=== PATIENT | male | born 1975 | race Caucasian/White ===

== ENCOUNTER 2018-03-09 23:03 | Inpatient (IN) | payer OTHER ==
[2018-03-09] MEDS ORDERED: SODIUM CHLORIDE 0.9% 500 ML 500 ML IV STA (23:13)
[2018-03-09] MEDS ORDERED: FAMOTIDINE 20 MG/2 ML VIAL IV STA (23:54)
--- NOTE | 2018-03-09 23:59 | ED ---
GI Bleed HPI - General Chief complaint: GI Bleed Stated complaint: Vomitting Blood Time Seen by Provider: 03/09/18 23:11 Source: patient Mode of arrival: ambulatory Limitations: no limitations - History of Present Illness Initial comments: This patient is a 43-year-old man who presents to be evaluated for an episode of hematemesis. The patient states that he had been watching television tonight. His stomach felt upset and then he vomited and noted that there was bright blood there. The patient states that prior to this all night he had been feeling like his usual self. He had not been having abdominal pains. No change in bowel movements, last which was this morning and he states was normal. He is denying symptoms of anemia, including no dyspnea, chest pain or palpitations, lightheadedness or syncope. Patient does smoke, and he does drink alcohol, including having some yesterday. He does take occasional NSAIDs for back pain. MD complaint: gross hematemesis Onset/Timin -: hour(s) Quality: painless Consistency: constant Improves with: none Worsens with: none Associated Symptoms: denies other symptoms Treatments Prior to Arrival: none - Related Data Home Medications Medication Instructions Recorded Confirmed Atenolol [Tenormin] 50 mg PO DAILY 03/09/18 03/09/18 Losartan [Cozaar] 50 mg PO DAILY 03/09/18 03/09/18 Allergies Allergy/AdvReac Type Severity Reaction Status Date / Time Penicillins Allergy Unknown Verified 03/09/18 23:26 Childhood Review of Systems ROS Statement: Those systems with pertinent positive or pertinent negative responses have been documented in the HPI. ROS Other: All systems not noted in ROS Statement are negative. Constitutional: Denies: fever, chills Respiratory: Denies: cough, dyspnea Cardiovascular: Denies: chest pain, palpitations, edema, syncope Gastrointestinal: Reports: nausea, vomiting, hematemesis. Denies: abdominal pain, diarrhea, constipation, melena, hematochezia Musculoskeletal: Denies: back pain Skin: Denies: rash Neurological: Denies: headache, weakness, numbness Hematological/Lymphatic: Denies: easy bleeding Past Medical History Past Medical History: Hypertension History of Any Multi-Drug Resistant Organisms: None Reported Past Surgical History: Orthopedic Surgery Past Psychological History: No Psychological Hx Reported Smoking Status: Current every day smoker Past Alcohol Use History: Daily Past Drug Use History: None Reported General Exam Limitations: no limitations General appearance: alert, in no apparent distress Head exam: Present: atraumatic, normocephalic Eye exam: Present: normal appearance. Absent: scleral icterus, conjunctival injection ENT exam: Present: other (Poor dentition, caries) Respiratory exam: Present: normal lung sounds bilaterally. Absent: respiratory distress, wheezes, rales, rhonchi, stridor Cardiovascular Exam: Present: normal rhythm, tachycardia (Rate 108 at my exam), normal heart sounds. Absent: systolic murmur, diastolic murmur, rubs, gallop GI/Abdominal exam: Present: soft, normal bowel sounds. Absent: distended, tenderness, guarding, rebound, rigid, mass, pulsatile mass, hernia Extremities exam: Present: normal inspection, normal capillary refill. Absent: pedal edema, calf tenderness Back exam: Present: normal inspection. Absent: CVA tenderness (R), CVA tenderness (L) Neurological exam: Present: alert Skin exam: Present: warm, dry, intact, normal color. Absent: rash Course Vital Signs 03/09/18 03/10/18 03/10/18 23:05 01:57 02:48 Temperature 98.6 F Pulse Rate 111 H 114 H 115 H Respiratory 20 17 17 Rate Blood Pressure 136/79 119/58 138/59 O2 Sat by Pulse 100 97 98 Oximetry 03/10/18 03/10/18 03:45 05:41 Temperature Pulse Rate 112 H 118 H Respiratory 17 17 Rate Blood Pressure 137/65 128/64 O2 Sat by Pulse 98 96 Oximetry Medical Decision Making - Medical Decision Making The patient did have an additional episode of vomiting here with on probably around 100 200 mL of dark blood. Case discussed with admitting physician and also with Dr. Lin. Patient be admitted with gastroenterology constipation. No further hematemesis. - Lab Data Result diagrams: 03/10/18 03:58 03/09/18 23:56 Lab Results 03/09/18 03/09/18 03/09/18 Range/Units 23:56 23:56 23:56 WBC 10.4 (3.8-10.6) k/uL RBC 3.30 L (4.30-5.90) m/uL Hgb 11.2 L (13.0-17.5) gm/dL Hct 34.7 L (39.0-53.0) % MCV 105.3 H (80.0-100.0) fL MCH 33.9 (25.0-35.0) pg MCHC 32.2 (31.0-37.0) g/dL RDW 14.6 (11.5-15.5) % Plt Count 92 L (150-450) k/uL Neutrophils % 80 % Lymphocytes % 13 % Monocytes % 5 % Eosinophils % 1 % Basophils % 0 % Neutrophils # 8.3 H (1.3-7.7) k/uL Lymphocytes # 1.3 (1.0-4.8) k/uL Monocytes # 0.5 (0-1.0) k/uL Eosinophils # 0.1 (0-0.7) k/uL Basophils # 0.0 (0-0.2) k/uL Macrocytosis Moderate APTT (22.0-30.0) sec Sodium 138 (137-145) mmol/L Potassium 5.4 H (3.5-5.1) mmol/L Chloride 111 H (98-107) mmol/L Carbon Dioxide 20 L (22-30) mmol/L Anion Gap 7 mmol/L BUN 15 (9-20) mg/dL Creatinine 0.61 L (0.66-1.25) mg/dL Est GFR (CKD-EPI)AfAm >90 (>60 ml/min/1.73 sqM) Est GFR (CKD-EPI)NonAf >90 (>60 ml/min/1.73 sqM) Glucose 154 H (74-99) mg/dL Lactic Ac Sepsis Rflx Plasma Lactic Acid Austin (0.7-2.0) mmol/L Calcium 8.6 (8.4-10.2) mg/dL Total Bilirubin 2.8 H (0.2-1.3) mg/dL AST 72 H (17-59) U/L ALT 37 (21-72) U/L Alkaline Phosphatase 90 (38-126) U/L Total Creatine Kinase 106 (55-170) U/L CK-MB (CK-2) 1.3 (0.0-2.4) ng/mL CK-MB (CK-2) Rel Index 1.2 Troponin I 0.014 (0.000-0.034) ng/mL Total Protein 6.3 (6.3-8.2) g/dL Albumin 3.0 L (3.5-5.0) g/dL Serum Alcohol mg/dL 03/09/18 03/09/18 03/10/18 Range/Units 23:56 23:56 00:55 WBC (3.8-10.6) k/uL RBC (4.30-5.90) m/uL Hgb (13.0-17.5) gm/dL Hct (39.0-53.0) % MCV (80.0-100.0) fL MCH (25.0-35.0) pg MCHC (31.0-37.0) g/dL RDW (11.5-15.5) % Plt Count (150-450) k/uL Neutrophils % % Lymphocytes % % Monocytes % % Eosinophils % % Basophils % % Neutrophils # (1.3-7.7) k/uL Lymphocytes # (1.0-4.8) k/uL Monocytes # (0-1.0) k/uL Eosinophils # (0-0.7) k/uL Basophils # (0-0.2) k/uL Macrocytosis APTT 23.1 (22.0-30.0) sec Sodium (137-145) mmol/L Potassium (3.5-5.1) mmol/L Chloride (98-107) mmol/L Carbon Dioxide (22-30) mmol/L Anion Gap mmol/L BUN (9-20) mg/dL Creatinine (0.66-1.25) mg/dL Est GFR (CKD-EPI)AfAm (>60 ml/min/1.73 sqM) Est GFR (CKD-EPI)NonAf (>60 ml/min/1.73 sqM) Glucose (74-99) mg/dL Lactic Ac Sepsis Rflx Y Plasma Lactic Acid Austin 4.3 H* (0.7-2.0) mmol/L Calcium (8.4-10.2) mg/dL Total Bilirubin (0.2-1.3) mg/dL AST (17-59) U/L ALT (21-72) U/L Alkaline Phosphatase (38-126) U/L Total Creatine Kinase (55-170) U/L CK-MB (CK-2) (0.0-2.4) ng/mL CK-MB (CK-2) Rel Index Troponin I (0.000-0.034) ng/mL Total Protein (6.3-8.2) g/dL Albumin (3.5-5.0) g/dL Serum Alcohol mg/dL 03/10/18 Range/Units 01:44 WBC (3.8-10.6) k/uL RBC (4.30-5.90) m/uL Hgb (13.0-17.5) gm/dL Hct (39.0-53.0) % MCV (80.0-100.0) fL MCH (25.0-35.0) pg MCHC (31.0-37.0) g/dL RDW (11.5-15.5) % Plt Count (150-450) k/uL Neutrophils % % Lymphocytes % % Monocytes % % Eosinophils % % Basophils % % Neutrophils # (1.3-7.7) k/uL Lymphocytes # (1.0-4.8) k/uL Monocytes # (0-1.0) k/uL Eosinophils # (0-0.7) k/uL Basophils # (0-0.2) k/uL Macrocytosis APTT (22.0-30.0) sec Sodium (137-145) mmol/L Potassium (3.5-5.1) mmol/L Chloride (98-107) mmol/L Carbon Dioxide (22-30) mmol/L Anion Gap mmol/L BUN (9-20) mg/dL Creatinine (0.66-1.25) mg/dL Est GFR (CKD-EPI)AfAm (>60 ml/min/1.73 sqM) Est GFR (CKD-EPI)NonAf (>60 ml/min/1.73 sqM) Glucose (74-99) mg/dL Lactic Ac Sepsis Rflx Plasma Lactic Acid Austin (0.7-2.0) mmol/L Calcium (8.4-10.2) mg/dL Total Bilirubin (0.2-1.3) mg/dL AST (17-59) U/L ALT (21-72) U/L Alkaline Phosphatase (38-126) U/L Total Creatine Kinase (55-170) U/L CK-MB (CK-2) (0.0-2.4) ng/mL CK-MB (CK-2) Rel Index Troponin I (0.000-0.034) ng/mL Total Protein (6.3-8.2) g/dL Albumin (3.5-5.0) g/dL Serum Alcohol 21 mg/dL Disposition Clinical Impression: Upper gastrointestinal hemorrhage Disposition: ADMITTED IP TO THIS HOSP Condition: Fair Is patient prescribed a controlled substance at d/c from ED?: No
[2018-03-10 00:40] LABS: Basophils % (A) 0 %; Eosinophils # (A) 0.1 k/uL (0-0.7); Eosinophils % (A) 1 %; HCT 34.7 % (39.0-53.0); HGB 11.2 gm/dL (13.0-17.5); Lymphocytes # (A) 1.3 k/uL (1.0-4.8); Lymphocytes % (A) 13 %; MCH 33.9 pg (25.0-35.0); MCHC 32.2 g/dL (31.0-37.0); MCV 105.3 fL (80.0-100.0); Macrocytosis Moderate; Mean Platelet Volume 7.2; Monocytes # (A) 0.5 k/uL (0-1.0); Monocytes % (A) 5 %; Neutrophils # (A) 8.3 k/uL (1.3-7.7); Neutrophils % (A) 80 %; RDW 14.6 % (11.5-15.5); WBC 10.4 k/uL (3.8-10.6)
[2018-03-10 00:55] LABS: ALT 37 U/L (21-72); AST 72 U/L (17-59); Alkaline Phosphatase 90 U/L (38-126); Anion Gap 7 mmol/L; Blood Urea Nitrogen 15 mg/dL (9-20); Calcium 8.6 mg/dL (8.4-10.2); Carbon Dioxide 20 mmol/L (22-30); Chloride 111 mmol/L (98-107); Glucose 154 mg/dL (74-99); Potassium 5.4 mmol/L (3.5-5.1); Sodium 138 mmol/L (137-145); Total Bilirubin 2.8 mg/dL (0.2-1.3); Total Protein 6.3 g/dL (6.3-8.2)
[2018-03-10] MEDS ORDERED: SODIUM CHLORIDE 0.9% 500 ML 500 ML IV STA (01:18)
[2018-03-10] MEDS ORDERED: PANTOPRAZOLE 40 MG/10 ML VIAL IVP STA (01:19)
[2018-03-10 01:21] LABS: Creatine Kinase MB 1.3 ng/mL (0.0-2.4); Troponin I 0.014 ng/mL (0.000-0.034)
[2018-03-10 01:32] LABS: Platelet Count 92 k/uL (150-450)
[2018-03-10] MEDS ORDERED: NALOXONE 0.4 MG/ML 1 ML VIAL IV PRN (03:05)
[2018-03-10] MEDS ORDERED: ONDANSETRON 4 MG/2 ML VIAL IVP PRN (03:05)
[2018-03-10] MEDS ORDERED: THIAMINE 100 MG/ML 2 ML VIAL IM STA (03:15)
[2018-03-10] MEDS ORDERED: LORazepam 2 MG/ML INJ IV PRN ×3 (03:15)
[2018-03-10 04:58] LABS: HCT 31.3 % (39.0-53.0); HGB 10.2 gm/dL (13.0-17.5); MCHC 32.6 g/dL (31.0-37.0); MCV 104.2 fL (80.0-100.0); Macrocytosis Slight; Mean Platelet Volume 7.6; RDW 14.6 % (11.5-15.5); WBC 12.1 k/uL (3.8-10.6)
[2018-03-10 05:22] LABS: Platelet Count 89 k/uL (150-450)
--- NOTE | 2018-03-10 06:31 | P.HPIM ---
History of Present Illness H&P Date: 03/10/18 Chief Complaint: Hematemesis Patient is a 43-year-old male with history of hypertension, alcohol abuse he states he drinks about a sixpack of beer although liquor daily, tobacco abuse, chronic back pain for which she was taking NSAIDs on a regular basis and has not taken any recently. Patient states he was feeling well until the day of admission during the day he felt that his stomach was queasy however he did not have any nausea vomiting or diarrhea. If that evening, the patient states he put his kids to bed he then sat down to watch football and then felt nauseous and had an episode of hematemesis. States since mannerly bright blood. Denied any dizziness or shortness of breath he came to the emergency room for evaluation. In the emergency room patient's tachycardic versus vital signs are otherwise stable he had other episodes of hematemesis in the emergency room he received Protonix IV 1 was admitted for further workup and management. Review of Systems Complete Reviewed and negative other than stated above Past Medical History Past Medical History: Hypertension History of Any Multi-Drug Resistant Organisms: None Reported Past Surgical History: Orthopedic Surgery Past Psychological History: No Psychological Hx Reported Smoking Status: Current every day smoker Past Alcohol Use History: Daily Past Drug Use History: None Reported Medications and Allergies Home Medications Medication Instructions Recorded Confirmed Type Atenolol [Tenormin] 50 mg PO DAILY 03/09/18 03/09/18 History Losartan [Cozaar] 50 mg PO DAILY 03/09/18 03/09/18 History Allergies Allergy/AdvReac Type Severity Reaction Status Date / Time Penicillins Allergy Unknown Verified 03/09/18 23:26 Childhood Physical Exam Vitals: Vital Signs Temp Pulse Resp BP Pulse Ox 03/10/18 05:41 118 H 17 128/64 96 03/10/18 03:45 112 H 17 137/65 98 03/10/18 02:48 115 H 17 138/59 98 03/10/18 01:57 114 H 17 119/58 97 03/09/18 23:05 98.6 F 111 H 20 136/79 100 Intake and Output 03/09/18 03/09/18 03/10/18 14:59 22:59 06:59 Other: Weight 105.687 kg - Constitutional General appearance: no acute distress - EENT Eyes: PERRLA ENT: normal oropharynx - Neck Neck: normal ROM - Respiratory Respiratory: bilateral: CTA - Cardiovascular Tachycardic no murmurs rubs or gallops - Gastrointestinal General gastrointestinal: normal bowel sounds, soft - Integumentary Integumentary: normal turgor - Musculoskeletal Musculoskeletal: strength equal bilaterally - Psychiatric Psychiatric: A&O x's 3, appropriate affect, intact judgment & insight Results CBC & Chem 7: 03/10/18 03:58 03/09/18 23:56 Labs: Abnormal Lab Results - Last 24 Hours (Table) 03/09/18 03/09/18 03/09/18 Range/Units 23:56 23:56 23:56 WBC (3.8-10.6) k/uL RBC 3.30 L (4.30-5.90) m/uL Hgb 11.2 L (13.0-17.5) gm/dL Hct 34.7 L (39.0-53.0) % MCV 105.3 H (80.0-100.0) fL Plt Count 92 L (150-450) k/uL Neutrophils # 8.3 H (1.3-7.7) k/uL Potassium 5.4 H (3.5-5.1) mmol/L Chloride 111 H (98-107) mmol/L Carbon Dioxide 20 L (22-30) mmol/L Creatinine 0.61 L (0.66-1.25) mg/dL Glucose 154 H (74-99) mg/dL Plasma Lactic Acid Austin 4.3 H* (0.7-2.0) mmol/L Total Bilirubin 2.8 H (0.2-1.3) mg/dL AST 72 H (17-59) U/L Albumin 3.0 L (3.5-5.0) g/dL 03/10/18 03/10/18 Range/Units 03:58 04:49 WBC 12.1 H (3.8-10.6) k/uL RBC 3.00 L (4.30-5.90) m/uL Hgb 10.2 L (13.0-17.5) gm/dL Hct 31.3 L (39.0-53.0) % MCV 104.2 H (80.0-100.0) fL Plt Count 89 L (150-450) k/uL Neutrophils # (1.3-7.7) k/uL Potassium (3.5-5.1) mmol/L Chloride (98-107) mmol/L Carbon Dioxide (22-30) mmol/L Creatinine (0.66-1.25) mg/dL Glucose (74-99) mg/dL Plasma Lactic Acid Austin 3.8 H* (0.7-2.0) mmol/L Total Bilirubin (0.2-1.3) mg/dL AST (17-59) U/L Albumin (3.5-5.0) g/dL Thrombosis Risk Factor Assmnt - DVT/VTE Prophylaxis DVT/VTE Prophylaxis: Contraindicated - See note - Choose All That Apply Each Factor Represents 1 point: Age 41-60 years Thrombosis Risk Factor Assessment Total Risk Factor Score: 1 Thrombosis Risk Factor Assessment Level: Low Risk Assessment and Plan Assessment: Consult gastroenterology, trend hemoglobins, at this time does not require any transfusions, PPI twice a day IV, keep patient nothing by mouth and given IV hydration (1) Upper gastrointestinal hemorrhage Current Visit: Yes Status: Acute Code(s): K92.2 - GASTROINTESTINAL HEMORRHAGE, UNSPECIFIED SNOMED Code(s): 81603902 (2) Tobacco abuse Narrative/Plan: His carcinoma smoking cessation he refuses a nicotine patch at this time Current Visit: Yes Status: Acute Code(s): Z72.0 - TOBACCO USE SNOMED Code( s): 050050037 (3) Alcohol abuse Narrative/Plan: CIWA protocol in place, monitor for evidence of withdrawal, IV hydration, Current Visit: Yes Status: Acute Code(s): F10.10 - ALCOHOL ABUSE, UNCOMPLICATED SNOMED Code(s): 88707372 (4) Hypertension Narrative/Plan: Continue outpatient regiment and titrate as needed Current Visit: Yes Status: Acute Code(s): I10 - ESSENTIAL (PRIMARY) HYPERTENSION SNOMED Code(s): 37355187 (5) Hyperglycemia Narrative/Plan: Recheck fasting sugars, check A1c, patient is diabetic then we will initiate counseling and education with treatment Current Visit: Yes Status: Acute Code(s): R73.9 - HYPERGLYCEMIA, UNSPECIFIED SNOMED Code(s): 06865517 Plan: Low risk for DVT votes chemical prophylaxis contraindicated, anticipated that he will need grated midnights stay, he is a full code
[2018-03-10 07:52] LABS: Anion Gap 8 mmol/L; Blood Urea Nitrogen 17 mg/dL (9-20); Calcium 8.4 mg/dL (8.4-10.2); Carbon Dioxide 17 mmol/L (22-30); Chloride 115 mmol/L (98-107); Glucose 140 mg/dL (74-99); Potassium 5.2 mmol/L (3.5-5.1); Sodium 140 mmol/L (137-145)
[2018-03-10] MEDS: SODIUM CHLORIDE 0.9% 1,000 ML IV SCH ×3 (07:53→15:42)
[2018-03-10] MEDS: LOSARTAN 50 MG TAB PO SCH (08:03)
[2018-03-10] MEDS: PANTOPRAZOLE 40 MG/10 ML VIAL IV SCH (08:03)
[2018-03-10] MEDS: ATENOLOL 50 MG TAB PO SCH (08:03)
[2018-03-10 08:26] LABS: Basophils % (A) 0 %; Eosinophils % (A) 0 %; HCT 27.3 % (39.0-53.0); HGB 9.1 gm/dL (13.0-17.5); Lymphocytes % (A) 9 %; MCH 35.2 pg (25.0-35.0); MCHC 33.4 g/dL (31.0-37.0); MCV 105.4 fL (80.0-100.0); Macrocytosis Moderate; Mean Platelet Volume 7.4; Monocytes # (A) 0.8 k/uL (0-1.0); Monocytes % (A) 7 %; Neutrophils # (A) 9.5 k/uL (1.3-7.7); Neutrophils % (A) 83 %; RBC 2.59 m/uL (4.30-5.90); RDW 14.8 % (11.5-15.5); WBC 11.5 k/uL (3.8-10.6)
[2018-03-10 08:36] LABS: Anion Gap 7 mmol/L; Blood Urea Nitrogen 22 mg/dL (9-20); Calcium 7.9 mg/dL (8.4-10.2); Carbon Dioxide 20 mmol/L (22-30); Chloride 114 mmol/L (98-107); Glucose 126 mg/dL (74-99); Platelet Count 90 k/uL (150-450); Potassium 5.6 mmol/L (3.5-5.1); Sodium 141 mmol/L (137-145)
[2018-03-10] MEDS ORDERED: DEXTROSE 50%-WATER 50 ML SYRINGE IVP STA (12:00)
[2018-03-10] MEDS ORDERED: INSULIN REGULAR 100 UNIT/ML VIAL IV ONE (12:00)
--- NOTE | 2018-03-10 12:25 | P.PN ---
Progress Note - Text Progress Note Date: 03/10/18 43 year old M with PMH of EtOH abuse presents to the ED for hematemesis and melena. Patient reports multiple bloody episodes of vomiting prior to admission. Since last night, he has vomited once, with gross blood. He denies any abdominal pain. No changes in bowel habits. States he took 2 Ibuprofens over the past 2 days. He does drink 1-2 shots daily with 5-6 beers. Alert and oriented x 3 RRR. Normal S1 S2. No murmurs, rubs or gallops. Clear to auscultation bilaterally Soft, non tender abdomen. No masses No lower extremity edema 2+ DP pulses bilaterally 1. Upper GI bleed: Likely gastritis vs ulcer disease. Long history of EtOH with remote h/o NSAID use. Protonix 40 mg IV QD. Zofran 4 mg IV TID PRN for N/V. H&H Q8H. Telemetry monitoring. NPO for possible intervention. FU GI consult 2. Alcohol abuse: CIWA protocol. Ativan IV PRN for CIWA > 8. Continue Thiamine 100 mg PO BID. Fall precautions. Keep Mg > 2 and K > 4. 3. HyperK: K 5.6 likely due to the acidosis (Low HCO3 and elevated lactic acid) . Continue NS 15 150 cc/h. FU EKG, Lactic acid 4. Leukocytosis: WBC 10.4 to 12.1 to 11.5. No signs of infection. Patient is afebrile with no signs of infection. This is likely reactive. Will continue to monitor. 5. Thrombocytopenia: Plt 90. Likely secondary to EtOH abuse. Will continue to monitor. Avoid Heparin products. FU Hep panel 6. Anemia: Hg 9.1 Hct 27.3 MCV 105.4. Downtrend due to GI bleed + dilution. Macrocytoic likely due to EtOH abuse. Transfuse if Hg < 7.0. Daily CBC. FU B12, Folate 6. Lactic acidosis: Lactic acid 4.3 to 3.8, HCO3 17 to 20. Likely starvation secondary to EtOH abuse. 7. Hypertension: BP 114/61. Continue Losartan 50 mg PO QD and Atenolol 50 mg PO QD. Monitor vitals, adjust medications as necessary. 8. VITO: BUN 22 Cr 0.64 likely secondary to dehydration (GI bleed). Continue NS at 150 cc/h. Daily BMP. 9. DVT/GO Prophylaxis: SCD boots only. Protonix IV. Pending GI consult for possible intervention (EGD and possible C-scope). H&H TID in the meantime. Protonix IV and NPO.
[2018-03-10] MEDS ORDERED: METOCLOPRAMIDE 5 MG/ML 2 ML VIAL IVP STA (12:28)
[2018-03-10] MEDS ORDERED: PHENYLEPHRINE-0.9% NACL SYG 1 MG/10 ML SYRINGE ONE (13:40)
[2018-03-10] MEDS ORDERED: MIDAZOLAM 2 MG/2 ML VIAL ONE (13:40)
[2018-03-10] MEDS ORDERED: PROPOFOL 10 MG/ML 20 ML VIAL IV ONE (13:40)
[2018-03-10] MEDS ORDERED: LIDOCAINE 1% INJ 10MG/ML (20 ML MDV) ONE (13:40)
[2018-03-10] MEDS ORDERED: SODIUM CHLORIDE 0.9% 1,000 ML IV ONE ×2 (13:54)
[2018-03-10] MEDS: OCTREOTIDE 200 MCG in SODIUM CHLORIDE 0.9% 100 ML IV SCH (15:42)
[2018-03-10] MEDS: THIAMINE 100 MG TAB PO SCH (15:42)
[2018-03-10 16:16] LABS: Anion Gap 4 mmol/L; Blood Urea Nitrogen 28 mg/dL (9-20); Calcium 7.9 mg/dL (8.4-10.2); Carbon Dioxide 19 mmol/L (22-30); Chloride 117 mmol/L (98-107); Glucose 114 mg/dL (74-99); Potassium 5.1 mmol/L (3.5-5.1); Sodium 140 mmol/L (137-145)
[2018-03-10 16:43] LABS: Basophils % (A) 0 %; Eosinophils % (A) 0 %; HCT 24.9 % (39.0-53.0); Lymphocytes # (A) 1.9 k/uL (1.0-4.8); Lymphocytes % (A) 16 %; MCH 34.5 pg (25.0-35.0); MCHC 31.9 g/dL (31.0-37.0); MCV 107.9 fL (80.0-100.0); Macrocytosis Marked; Mean Platelet Volume 7.5; Monocytes # (A) 0.8 k/uL (0-1.0); Monocytes % (A) 7 %; Neutrophils % (A) 76 %; RBC 2.31 m/uL (4.30-5.90); RDW 14.9 % (11.5-15.5); WBC 11.8 k/uL (3.8-10.6)
[2018-03-10 16:49] LABS: Platelet Count 79 k/uL (150-450)
[2018-03-10 20:05] LABS: Basophils % (A) 0 %; Eosinophils % (A) 0 %; HCT 23.3 % (39.0-53.0); HGB 7.5 gm/dL (13.0-17.5); Hypochromasia Slight; Lymphocytes # (A) 2.4 k/uL (1.0-4.8); Lymphocytes % (A) 21 %; MCH 34.6 pg (25.0-35.0); MCHC 32.1 g/dL (31.0-37.0); Macrocytosis Marked; Mean Platelet Volume 7.8; Monocytes # (A) 0.6 k/uL (0-1.0); Monocytes % (A) 6 %; Neutrophils # (A) 8.4 k/uL (1.3-7.7); Neutrophils % (A) 72 %; RBC 2.16 m/uL (4.30-5.90); RDW 15.2 % (11.5-15.5); WBC 11.6 k/uL (3.8-10.6)
[2018-03-10 20:11] LABS: Platelet Count 87 k/uL (150-450)
[2018-03-10 20:53] LABS: Stomatocytes Present
[2018-03-11] MEDS: SODIUM CHLORIDE 0.9% 1,000 ML IV SCH ×3 (00:01→16:48)
[2018-03-11] MEDS: OCTREOTIDE 200 MCG in SODIUM CHLORIDE 0.9% 100 ML IV SCH ×3 (00:01→18:08)
--- NOTE | 2018-03-11 01:05 | P.CONS ---
History of Present Illness - Reason for Consult Consult date: 03/10/18 Hematemesis Requesting physician: Rose Jimenez - Chief Complaint Hematemesis - History of Present Illness 43-year-old male with a medical history significant for hypertension and alcohol abuse who presents to the emergency department for further evaluation of hematemesis. Per the patient had been feeling unwell with a nauseated feeling late in the evening. He subsequently had an episode of vomiting and which she brought up food which she had previously eaten with no coffee-ground emesis or hematemesis noted. The patient subsequently had multiple episodes of vomiting productive of bright red blood. In addition he reports having an episode of melanotic stool earlier in the day. He denies any prior history of GI bleed. He does take ibuprofen 800 mg, but reports that this is where approximately 2 times per month. He denies any prior endoscopic evaluation. He does have a significant history of alcohol abuse drinking 6 beers daily as well as hard liquor. He denies any history of encephalopathy or ascites. He denies any history of underlying liver disease. After presentation to the hospital the patient had labs drawn which showed a hemoglobin of 11.2 which subsequently fell to 9.1. In addition the patient had elevated liver enzymes with a total bilirubin 2.8, alkaline phosphatase 90, AST 72, and ALT 37. Review of Systems REVIEW OF SYSTEMS: CARDIO: Denies any chest pain or palpitations. PULMONARY: Denies any shortness of breath or wheezing. GENITOURINARY: No dysuria or hematuria. MUSCULOSKELETAL: No weakness reported. SKIN: Denies any new rashes or lesions, jaundice or pallor. PSYCHIATRIC: Denies any depression or anxiety. NEUROLOGY: Denies headache, denies any new focal deficits. EARS: No tinnitus, discharge or new hearing loss. NOSE: No discharge or congestion. EYES: No pain in eyes or change in vision. CONSTITUTIONAL: No recent weight loss. No fever, chills, night sweats. Past Medical History Past Medical History: Hypertension Additional Past Medical History / Comment(s): Cervical and low back pain. History of Any Multi-Drug Resistant Organisms: None Reported Past Surgical History: Orthopedic Surgery Additional Past Surgical History / Comment(s): R elbow surgery for pinched nerve Past Anesthesia/Blood Transfusion Reactions: No Reported Reaction Smoking Status: Current every day smoker - Past Family History Father Family Medical History: No Reported History Additional Family Medical History / Comment(s): Father is healthy Mother Family Medical History: Respiratory Disorder Additional Family Medical History / Comment(s): Mother of lung disease. Medications and Allergies Home Medications Medication Instructions Recorded Confirmed Type Atenolol [Tenormin] 50 mg PO DAILY 03/09/18 03/09/18 History Losartan [Cozaar] 50 mg PO DAILY 03/09/18 03/09/18 History Allergies Allergy/AdvReac Type Severity Reaction Status Date / Time Penicillins Allergy Unknown Verified 03/09/18 23:26 Childhood Physical Exam Vitals: Vital Signs Temp Pulse Pulse Resp BP BP Pulse Ox 03/10/18 19:35 99.1 F 113 H 16 123/56 97 03/10/18 16:00 92 18 03/10/18 15:20 92 18 114/54 97 03/10/18 15:05 110 H 18 103/48 93 L 03/10/18 14:50 97 18 121/55 98 03/10/18 14:35 99.5 F 100 18 97/51 93 L 03/10/18 12:00 98.7 F 107 H 18 92/63 99 03/10/18 08:00 98.9 F 109 H 18 114/61 99 03/10/18 05:41 118 H 17 128/64 96 03/10/18 03:45 112 H 17 137/65 98 03/10/18 02:48 115 H 17 138/59 98 03/10/18 01:57 114 H 17 119/58 97 03/09/18 23:05 98.6 F 111 H 20 136/79 100 Intake and Output 03/10/18 03/10/18 03/10/18 06:59 14:59 22:59 Intake Total 300 1200 Balance 300 1200 Intake: IV 300 Intake, IV Titration 1200 Amount Sodium Chloride 0.9% 1, 1200 000 ml @ 150 mls/hr IV . Q6H40M [facility] Rx#:[id number] Other: # Voids 1 3 # Bowel Movements 2 Weight 105.687 kg On physical examination, patient appears comfortable in no apparent distress. HEAD: Normocephalic, atraumatic. EYES: No scleral icterus. No conjunctival injection. MOUTH: No lesions, tongue midline. NECK: Trachea midline, no gross abnormalities. CHEST: Clear to auscultation with no wheezing or rhonchi appreciated. HEART: Regular rate and rhythm. ABDOMEN: Soft, obese. Bowel sounds are positive. No organomegaly. No guarding or rigidity. EXTREMITIES: No pedal edema. SKIN: No rashes, no jaundice. NEUROLOGIC: Alert and oriented x3. No focal deficits. Results CBC & Chem 7: 03/10/18 19:46 03/10/18 15:27 Labs: Abnormal Lab Results - Last 24 Hours (Table) 03/09/18 03/09/18 03/09/18 Range/Units 23:56 23:56 23:56 WBC (3.8-10.6) k/uL RBC 3.30 L (4.30-5.90) m/uL Hgb 11.2 L (13.0-17.5) gm/dL Hct 34.7 L (39.0-53.0) % MCV 105.3 H (80.0-100.0) fL MCH (25.0-35.0) pg Plt Count 92 L (150-450) k/uL Neutrophils # 8.3 H (1.3-7.7) k/uL Potassium 5.4 H (3.5-5.1) mmol/L Chloride 111 H (98-107) mmol/L Carbon Dioxide 20 L (22-30) mmol/L BUN (9-20) mg/dL Creatinine 0.61 L (0.66-1.25) mg/dL Glucose 154 H (74-99) mg/dL Plasma Lactic Acid Austin 4.3 H* (0.7-2.0) mmol/L Calcium (8.4-10.2) mg/dL Total Bilirubin 2.8 H (0.2-1.3) mg/dL AST 72 H (17-59) U/L Albumin 3.0 L (3.5-5.0) g/dL 03/10/18 03/10/18 03/10/18 Range/Units 01:44 03:58 04:49 WBC 12.1 H (3.8-10.6) k/uL RBC 3.00 L (4.30-5.90) m/uL Hgb 10.2 L (13.0-17.5) gm/dL Hct 31.3 L (39.0-53.0) % MCV 104.2 H (80.0-100.0) fL MCH (25.0-35.0) pg Plt Count 89 L (150-450) k/uL Neutrophils # (1.3-7.7) k/uL Potassium 5.2 H (3.5-5.1) mmol/L Chloride 115 H (98-107) mmol/L Carbon Dioxide 17 L (22-30) mmol/L BUN (9-20) mg/dL Creatinine 0.61 L (0.66-1.25) mg/dL Glucose 140 H (74-99) mg/dL Plasma Lactic Acid Austin 3.8 H* (0.7-2.0) mmol/L Calcium (8.4-10.2) mg/dL Total Bilirubin (0.2-1.3) mg/dL AST (17-59) U/L Albumin (3.5-5.0) g/dL 03/10/18 03/10/18 03/10/18 Range/Units 07:58 07:58 15:27 WBC 11.5 H (3.8-10.6) k/uL RBC 2.59 L (4.30-5.90) m/uL Hgb 9.1 L (13.0-17.5) gm/dL Hct 27.3 L (39.0-53.0) % MCV 105.4 H (80.0-100.0) fL MCH 35.2 H (25.0-35.0) pg Plt Count 90 L (150-450) k/uL Neutrophils # 9.5 H (1.3-7.7) k/uL Potassium 5.6 H (3.5-5.1) mmol/L Chloride 114 H 117 H (98-107) mmol/L Carbon Dioxide 20 L 19 L (22-30) mmol/L BUN 22 H 28 H (9-20) mg/dL Creatinine 0.64 L (0.66-1.25) mg/dL Glucose 126 H 114 H (74-99) mg/dL Plasma Lactic Acid Austin (0.7-2.0) mmol/L Calcium 7.9 L 7.9 L (8.4-10.2) mg/dL Total Bilirubin (0.2-1.3) mg/dL AST (17-59) U/L Albumin (3.5-5.0) g/dL 03/10/18 03/10/18 03/10/18 Range/Units 15:27 15:27 19:46 WBC 11.8 H 11.6 H (3.8-10.6) k/uL RBC 2.31 L 2.16 L (4.30-5.90) m/uL Hgb 8.0 L 7.5 L (13.0-17.5) gm/dL Hct 24.9 L 23.3 L (39.0-53.0) % MCV 107.9 H 108.0 H (80.0-100.0) fL MCH (25.0-35.0) pg Plt Count 79 L 87 L (150-450) k/uL Neutrophils # 9.0 H 8.4 H (1.3-7.7) k/uL Potassium (3.5-5.1) mmol/L Chloride (98-107) mmol/L Carbon Dioxide (22-30) mmol/L BUN (9-20) mg/dL Creatinine (0.66-1.25) mg/dL Glucose (74-99) mg/dL Plasma Lactic Acid Austin 3.2 H* (0.7-2.0) mmol/L Calcium (8.4-10.2) mg/dL Total Bilirubin (0.2-1.3) mg/dL AST (17-59) U/L Albumin (3.5-5.0) g/dL 03/10/18 Range/Units 19:46 WBC (3.8-10.6) k/uL RBC (4.30-5.90) m/uL Hgb (13.0-17.5) gm/dL Hct (39.0-53.0) % MCV (80.0-100.0) fL MCH (25.0-35.0) pg Plt Count (150-450) k/uL Neutrophils # (1.3-7.7) k/uL Potassium (3.5-5.1) mmol/L Chloride (98-107) mmol/L Carbon Dioxide (22-30) mmol/L BUN (9-20) mg/dL Creatinine (0.66-1.25) mg/dL Glucose (74-99) mg/dL Plasma Lactic Acid Austin 3.0 H* (0.7-2.0) mmol/L Calcium (8.4-10.2) mg/dL Total Bilirubin (0.2-1.3) mg/dL AST (17-59) U/L Albumin (3.5-5.0) g/dL Assessment and Plan (1) Upper gastrointestinal hemorrhage Narrative/Plan: Multiple episodes of hematemesis after an initial episode of nonbloody vomitus, suggestive of possible Katherin-Petty tear. Differential also includes peptic ulcer disease, erosive gastritis or esophagitis, bleeding varices or other etiology. Current Visit: Yes Status: Acute Code(s): K92.2 - GASTROINTESTINAL HEMORRHAGE, UNSPECIFIED SNOMED Code(s): 86257010 (2) Anemia, blood loss Narrative/Plan: Secondary to above. Current Visit: Yes Status: Acute Code(s): D50.0 - IRON DEFICIENCY ANEMIA SECONDARY TO BLOOD LOSS (CHRONIC) SNOMED Code(s): 614134942 (3) Alcohol abuse Current Visit: Yes Status: Acute Code(s): F10.10 - ALCOHOL ABUSE, UNCOMPLICATED SNOMED Code(s): 33095869 (4) Elevated liver enzymes Narrative/Plan: Elevation in total bilirubin, and AST to ALT ratio consistent with alcohol abuse Current Visit: Yes Status: Acute Code(s): R74.8 - ABNORMAL LEVELS OF OTHER SERUM ENZYMES SNOMED Code(s): 676320888 Plan: Supportive care Nothing by mouth for now Patient taken for urgent EGD which was significant for erosive esophagitis and blood in the stomach, with no source of bleeding or active bleeding noted after copious lavage Continue Protonix IV twice a day Octreotide started given significant history of alcohol abuse and serologic evidence of liver compromise Monitor for alcohol withdrawal Monitor hemoglobin and transfuse as needed We'll continue to follow Alcohol abstinence Thank you for allowing us to participate in the care of this patient
--- NOTE | 2018-03-11 01:05 | P.PCN ---
Date of Procedure: 03/10/18 Description of Procedure: BRIEF HISTORY: Patient is a 43-year-old, pleasant, male with a medical history significant for hypertension and alcohol abuse who presents to the hospital with complaints of multiple episodes of bloody vomitus. The patient reports that he was at home when he started to feel unwell and had an episode of vomiting significant for food which she had eaten earlier in the night. He subsequently had multiple episodes of hematemesis. Decision was made the patient for urgent endoscopy. PROCEDURE PERFORMED: Esophagogastroduodenoscopy. PREOPERATIVE DIAGNOSIS: Hematemesis, anemia of blood loss. IV sedation per anesthesia. PROCEDURE: After informed consent was obtained, the patient was brought into the endoscopy unit. IV sedation was administered by Anesthesia under continuous monitoring. Initially the Olympus GIF-190 video endoscope was inserted into the mouth. Esophagus intubated without any difficulty. It was gradually advanced into the stomach and duodenum and carefully examined. The bulb and the second part of the duodenum appeared normal. The scope at this time was withdrawn to the stomach, adequately insufflated with air, and mucosa of the antrum, body, cardia and the fundus were examined. Hemolyzed blood and fresh blood were noted in the body, cardia and fundus. Copious lavage was performed and the area examined without any reaccumulation of blood. The scope was then withdrawn into the esophagus where severe erosive esophagitis was noted in the distal esophagus. No ulcers or active bleeding was noted in the esophagus. The GE junction was located at 42 cm from the incisors. IMPRESSION: 1.Severe erosive esophagitis in the distal esophagus without active bleeding . 2. Blood in the stomach without active bleeding noted. Copious lavage of the stomach without reaccumulation of blood and no source of active bleeding noted. RECOMMENDATIONS: The findings of this examination were discussed with the patient. Continue twice a day IV Protonix. Nothing by mouth with ice chips. Will add octreotide given significant history of alcohol abuse and serologic evidence of possible liver dysfunction, however no active bleeding varices were noted. Monitor hemoglobin and transfuse as needed. We'll continue to monitor.
[2018-03-11 02:13] LABS: Basophils % (A) 0 %; Eosinophils % (A) 0 %; HCT 21.1 % (39.0-53.0); Lymphocytes # (A) 2.7 k/uL (1.0-4.8); Lymphocytes % (A) 21 %; MCH 34.3 pg (25.0-35.0); MCHC 31.3 g/dL (31.0-37.0); MCV 109.6 fL (80.0-100.0); Monocytes # (A) 0.7 k/uL (0-1.0); Monocytes % (A) 6 %; Neutrophils # (A) 9.3 k/uL (1.3-7.7); Neutrophils % (A) 72 %; RBC 1.92 m/uL (4.30-5.90); RDW 15.5 % (11.5-15.5)
[2018-03-11 02:32] LABS: Platelet Count 77 k/uL (150-450)
[2018-03-11 02:37] LABS: HGB 6.6 gm/dL (13.0-17.5)
[2018-03-11 02:38] LABS: Macrocytosis Marked
[2018-03-11 05:53] LABS: Hepatitis A Antibody IgM Non-Reactive (Non-Reactive); Hepatitis B Core IgM Non-Reactive (Non-Reactive)
[2018-03-11] MEDS: THIAMINE 100 MG TAB PO SCH ×2 (08:25→16:47)
[2018-03-11] MEDS: ATENOLOL 50 MG TAB PO SCH (08:25)
[2018-03-11] MEDS: LOSARTAN 50 MG TAB PO SCH (08:25)
[2018-03-11] MEDS: PANTOPRAZOLE 40 MG/10 ML VIAL IV SCH ×2 (08:25→21:18)
--- NOTE | 2018-03-11 09:48 | CDI ---
Last Revision, April 2017 Documentation Clarification Form Date: 03/11/2018 9:41:05 AM From: Sindi DoveLewisCHRISTA, CCDS Admit Date: 03/10/2018 3:08:00 AM Patient Name: Jamey Flores Visit Number: [id number] Discharge Date: ATTENTION: The Clinical Documentation Specialists (CDI) and [facility] Coding Staff appreciate your assistance in clarifying documentation. Please respond to the clarification below the line at the bottom and electronically sign. The CDI & [facility] Coding staff will review the response and follow-up if needed. Please note: Queries are made part of the Legal Health Record. If you have any questions, please contact the author of this message via ITS. Lizandro Gonsales MD: A diagnosis of anemia lacks specificity to accurately reflect your patients severity of condition and clarification is needed. Per the GI consult: Anemia is documented as "Anemia, blood loss." History/Risk Factors: Daily Alcohol use & abuse, hyperglycemia, hypertension, Smoker. Clinical indicators: Presented with Hematemesis. Drinks approximately six beers with liquor daily, also takes NSAIDs on a regular basis. Hemoglobin: 11.2 - 6.6 Hematocrit: 34.7 - 21.1* Treatment: IV Protonix, IV fluids, IV Pepcid, IV Zofran, IV Ativan x3, CIWA protocol, EGD. In order to capture the severity of condition, please clarify the type of anemia and etiology if known: Acute blood loss anemia Acute on chronic blood loss anemia Chronic blood loss anemia Iron deficiency anemia Hemolytic anemia Unable to determine Other, please specify MTDD
[2018-03-11 10:00] LABS: Anisocytosis Slight; Basophils % (A) 0 %; Eosinophils % (A) 0 %; HCT 23.4 % (39.0-53.0); HGB 7.4 gm/dL (13.0-17.5); Hypochromasia Slight; Lymphocytes # (A) 2.1 k/uL (1.0-4.8); Lymphocytes % (A) 20 %; MCH 34.1 pg (25.0-35.0); MCHC 31.8 g/dL (31.0-37.0); MCV 107.3 fL (80.0-100.0); Macrocytosis Marked; Mean Platelet Volume 8.1; Monocytes # (A) 0.5 k/uL (0-1.0); Monocytes % (A) 5 %; Neutrophils # (A) 7.9 k/uL (1.3-7.7); Neutrophils % (A) 73 %; RBC 2.18 m/uL (4.30-5.90); RDW 16.5 % (11.5-15.5); WBC 10.7 k/uL (3.8-10.6)
[2018-03-11 10:11] LABS: Platelet Count 64 k/uL (150-450)
--- NOTE | 2018-03-11 11:48 | P.PN ---
Subjective Progress Note Date: 03/11/18 Principal diagnosis: GI bleed patient was seen and examined. No acute events overnight. No more vomiting. Patient does continue to experience melena. States that his bowel movements yesterday night were normal but had 2 bowel movements with melena at this morning. No bright red blood per rectum. He denies any chest pain, shortness of breath or palpitations. He continues to be nothing by mouth. EGD performed yesterday shows severe erosive Esophagitis. Hemoglobin down trending to 6.6 last night, transfused 1 unit of PRBC. Objective - Vital Signs Vital signs: Vital Signs Temp 98.4 F 03/11/18 08:01 Pulse 100 03/11/18 08:01 Resp 16 03/11/18 08:01 BP 101/49 03/11/18 08:01 Pulse Ox 97 03/11/18 08:01 Intake & Output 03/10/18 03/11/18 03/11/18 18:59 06:59 18:59 Intake Total 1500 1301 101 Output Total 300 Balance 1500 1301 -199 Weight 102.8 kg Intake: IV 300 Intake, IV Titration 1200 1301 101 Amount Octreotide 200 mcg In 101 101 Sodium Chloride 0.9% 100 ml @ 25 MCG/HR 12.62 mls/ hr IV .Q8H1M [facility] Rx#: [id number] Sodium Chloride 0.9% 1, 1200 1200 000 ml @ 150 mls/hr IV . Q6H40M [facility] Rx#:[id number] Blood Product 0 0 Rc As-1 Unit 0 0 [id number] Output: Urine 300 Other: # Voids 3 # Bowel Movements 2 0 - Exam General: [non toxic], [no distress], [appears at stated age] Derm: [warm], [dry] Head: [atraumatic], [normocephalic], [symmetric] Eyes: [EOMI], [no lid lag], [anicteric sclera] Mouth: [no lip lesion], [mucus membranes moist] Cardiovascular: [S1S2 reg], [no murmur], [positive DP pulse bilateral] Lungs: [CTA bilateral], [no rhonchi, no rales] , [no accessory muscle use] Abdominal: [soft], [ nontender to palpation], [no guarding], [no appreciable organomegaly] Ext: [no gross muscle atrophy], [no edema], [no contractures] Neuro: [no focal neuro deficits] Psych: [Alert], [oriented], [appropriate affect] - Labs CBC & Chem 7: 03/11/18 09:34 03/10/18 15:27 Labs: Abnormal Lab Results - Last 24 Hours (Table) 03/10/18 03/10/18 03/10/18 Range/Units 15:27 15:27 15:27 WBC 11.8 H (3.8-10.6) k/uL RBC 2.31 L (4.30-5.90) m/uL Hgb 8.0 L (13.0-17.5) gm/dL Hct 24.9 L (39.0-53.0) % MCV 107.9 H (80.0-100.0) fL RDW (11.5-15.5) % Plt Count 79 L (150-450) k/uL Neutrophils # 9.0 H (1.3-7.7) k/uL Chloride 117 H (98-107) mmol/L Carbon Dioxide 19 L (22-30) mmol/L BUN 28 H (9-20) mg/dL Glucose 114 H (74-99) mg/dL Plasma Lactic Acid Austin 3.2 H* (0.7-2.0) mmol/L Calcium 7.9 L (8.4-10.2) mg/dL Crossmatch 03/10/18 03/10/18 03/10/18 Range/Units 15:36 19:46 19:46 WBC 11.6 H (3.8-10.6) k/uL RBC 2.16 L (4.30-5.90) m/uL Hgb 7.5 L (13.0-17.5) gm/dL Hct 23.3 L (39.0-53.0) % MCV 108.0 H (80.0-100.0) fL RDW (11.5-15.5) % Plt Count 87 L (150-450) k/uL Neutrophils # 8.4 H (1.3-7.7) k/uL Chloride (98-107) mmol/L Carbon Dioxide (22-30) mmol/L BUN (9-20) mg/dL Glucose (74-99) mg/dL Plasma Lactic Acid Austin 3.0 H* (0.7-2.0) mmol/L Calcium (8.4-10.2) mg/dL Crossmatch See Detail 03/11/18 03/11/18 03/11/18 Range/Units 01:53 09:34 09:34 WBC 13.0 H 10.7 H (3.8-10.6) k/uL RBC 1.92 L 2.18 L (4.30-5.90) m/uL Hgb 6.6 L* 7.4 L (13.0-17.5) gm/dL Hct 21.1 L 23.4 L (39.0-53.0) % MCV 109.6 H 107.3 H (80.0-100.0) fL RDW 16.5 H (11.5-15.5) % Plt Count 77 L 64 L (150-450) k/uL Neutrophils # 9.3 H (1.3-7.7) k/uL Chloride (98-107) mmol/L Carbon Dioxide (22-30) mmol/L BUN (9-20) mg/dL Glucose (74-99) mg/dL Plasma Lactic Acid Austin 3.1 H* (0.7-2.0) mmol/L Calcium (8.4-10.2) mg/dL Crossmatch Assessment and Plan Assessment: Assessment and Plan 1. Upper GI bleed: Unknown etiology. Long history of EtOH with remote h/o NSAID use. Increase from Protonix 40 mg IV QD to BID. Zofran 4 mg IV TID PRN for N/V. Started Octreotide IV as per GI for possible variceal bleed. EGD performed 03/10 shows severe esophagitis without source of bleed. Trend H&H Q8H. Telemetry monitoring. NPO for possible intervention. FU GI consult 2. Alcohol abuse: CIWA protocol. Ativan IV PRN for CIWA > 8. Continue Thiamine 100 mg PO BID. Fall precautions. Keep Mg > 2 and K > 4. 3. Anemia: Hg 9.1 Hct 27.3 MCV 105.4. Downtrend (as low at 6.6 on 03/11 requiring 1 unit of PRBC) due to GI bleed + dilution. Macrocytoic likely due to EtOH abuse. B12 and Folate are within normal limits. Transfuse if Hg < 7.0. Trend H&H TID. 4. Lactic acidosis: Lactic acid 4.3 to 3.8, 3.2, 3.0 and 3.1. HCO3 20 to 17, 20 and 19. Likely starvation secondary to EtOH abuse. Continue NS at 150 cc/h. FU UA, Lactic acid 5. Leukocytosis: WBC 10.7 on 03/11. No signs of infection. Patient is afebrile with no signs of infection. This is likely reactive. Will continue to monitor. 6. Thrombocytopenia: Plt 64. Likely secondary to EtOH abuse. Will continue to monitor. Avoid Heparin products. Hep panel negative. 7. Hypertension: BP 101/49. Continue Losartan 50 mg PO QD and Atenolol 50 mg PO QD. Monitor vitals, adjust medications as necessary. 8. VITO: BUN 28, Cr within normal limits. Likely secondary to dehydration (GI bleed). Continue NS at 150 cc/h. Daily BMP. 9. DVT/GO Prophylaxis: SCD boots only. Protonix IV. Resolved: Hyperkalemia EGD reveals no source of bleeding. Started on Octreotide, continued on Protonix IV. H&H TID in the meantime. NPO for possible intervention (C-scope?). Will follow GI recommendations.
[2018-03-11 15:39] LABS: Anisocytosis Slight; Basophils % (A) 0 %; Eosinophils # (A) 0.1 k/uL (0-0.7); Eosinophils % (A) 1 %; HCT 23.3 % (39.0-53.0); HGB 7.3 gm/dL (13.0-17.5); Hypochromasia Slight; Lymphocytes # (A) 1.6 k/uL (1.0-4.8); Lymphocytes % (A) 13 %; MCHC 31.5 g/dL (31.0-37.0); MCV 107.8 fL (80.0-100.0); Macrocytosis Marked; Mean Platelet Volume 8.4; Monocytes # (A) 0.7 k/uL (0-1.0); Monocytes % (A) 5 %; Neutrophils # (A) 10.2 k/uL (1.3-7.7); Neutrophils % (A) 80 %; RBC 2.16 m/uL (4.30-5.90); RDW 16.6 % (11.5-15.5); WBC 12.8 k/uL (3.8-10.6)
[2018-03-11 16:07] LABS: Poikilocytosis (M) Present; Polychromasia Present
[2018-03-11 16:08] LABS: Platelet Count 66 k/uL (150-450)
[2018-03-11 16:50] LABS: Calcium 7.4 mg/dL (8.4-10.2); Potassium 4.3 mmol/L (3.5-5.1)
[2018-03-11 21:37] LABS: Anisocytosis Slight; Basophils % (A) 0 %; Eosinophils # (A) 0.1 k/uL (0-0.7); Eosinophils % (A) 1 %; HCT 22.5 % (39.0-53.0); HGB 7.3 gm/dL (13.0-17.5); Lymphocytes # (A) 1.7 k/uL (1.0-4.8); Lymphocytes % (A) 13 %; MCH 34.8 pg (25.0-35.0); MCHC 32.6 g/dL (31.0-37.0); MCV 106.8 fL (80.0-100.0); Mean Platelet Volume 7.8; Monocytes # (A) 0.6 k/uL (0-1.0); Monocytes % (A) 5 %; Neutrophils # (A) 10.4 k/uL (1.3-7.7); Neutrophils % (A) 80 %; RBC 2.11 m/uL (4.30-5.90); RDW 16.5 % (11.5-15.5); WBC 13.1 k/uL (3.8-10.6)
[2018-03-11 21:52] LABS: Platelet Count 76 k/uL (150-450)
[2018-03-11 21:53] LABS: Macrocytosis Marked
[2018-03-12] MEDS: SODIUM CHLORIDE 0.9% 1,000 ML IV SCH ×5 (00:36→21:25)
[2018-03-12] MEDS: OCTREOTIDE 200 MCG in SODIUM CHLORIDE 0.9% 100 ML IV SCH ×4 (02:10→21:26)
[2018-03-12 06:44] LABS: Anisocytosis Slight; Basophils % (A) 0 %; Eosinophils # (A) 0.1 k/uL (0-0.7); Eosinophils % (A) 1 %; HCT 21.1 % (39.0-53.0); Lymphocytes # (A) 1.6 k/uL (1.0-4.8); Lymphocytes % (A) 20 %; MCH 33.4 pg (25.0-35.0); MCHC 31.6 g/dL (31.0-37.0); MCV 105.7 fL (80.0-100.0); Macrocytosis Moderate; Mean Platelet Volume 7.8; Monocytes # (A) 0.5 k/uL (0-1.0); Monocytes % (A) 6 %; Neutrophils # (A) 5.9 k/uL (1.3-7.7); Neutrophils % (A) 71 %; RBC 1.99 m/uL (4.30-5.90); WBC 8.3 k/uL (3.8-10.6)
[2018-03-12 06:53] LABS: Platelet Count 60 k/uL (150-450)
[2018-03-12 06:54] LABS: HGB 6.7 gm/dL (13.0-17.5)
[2018-03-12] MEDS: PANTOPRAZOLE 40 MG/10 ML VIAL IV SCH ×2 (09:23→21:25)
[2018-03-12] MEDS: THIAMINE 100 MG TAB PO SCH ×2 (09:23→16:49)
[2018-03-12] MEDS: LOSARTAN 50 MG TAB PO SCH (09:23)
[2018-03-12] MEDS: ATENOLOL 50 MG TAB PO SCH (09:24)
--- NOTE | 2018-03-12 12:33 | P.PN ---
Subjective Progress Note Date: 03/12/18 Principal diagnosis: GI bleed Patient was seen and examined. No acute events overnight. Patient reports no complaints this morning. Had a bowel movement, dark brown in color and stool is more solidly formed. He denies any melena or bright red blood. He denies any chest pain or shortness of breath. Hemoglobin this morning downtrending to 6.7, transfused 1 unit of PRBC. Objective - Vital Signs Vital signs: Vital Signs Temp 97.6 F 03/12/18 12:11 Pulse 65 03/12/18 12:11 Resp 16 03/12/18 12:11 BP 103/50 03/12/18 12:11 Pulse Ox 97 03/12/18 08:00 Intake & Output 03/11/18 03/12/18 03/12/18 18:59 06:59 18:59 Intake Total 1202 101 221 Output Total 304 200 300 Balance 898 -99 -79 Weight 105.1 kg Intake: Intake, IV Titration 1202 101 101 Amount Octreotide 200 mcg In 202 101 101 Sodium Chloride 0.9% 100 ml @ 25 MCG/HR 12.62 mls/ hr IV .Q8H1M [facility] Rx#: [id number] Sodium Chloride 0.9% 1, 1000 000 ml @ 150 mls/hr IV . Q6H40M [facility] Rx#:[id number] Oral 120 Blood Product 0 0 Rc As-1 Unit 0 [id number] Rc As-1 Unit 0 [id number] Output: Urine 300 200 300 Stool 4 Other: # Voids 1 # Bowel Movements 0 1 - Exam General: [non toxic], [no distress], [appears at stated age] Derm: [warm], [dry] Head: [atraumatic], [normocephalic], [symmetric] Eyes: [EOMI], [no lid lag], [anicteric sclera] Mouth: [no lip lesion], [mucus membranes moist] Cardiovascular: [S1S2 reg], [no murmur], [positive DP pulse bilateral] Lungs: [CTA bilateral], [no rhonchi, no rales] , [no accessory muscle use] Abdominal: [soft], [ nontender to palpation], [no guarding], [no appreciable organomegaly] Ext: [no gross muscle atrophy], [no edema], [no contractures] Neuro: [no focal neuro deficits] Psych: [Alert], [oriented], [appropriate affect] - Labs CBC & Chem 7: 03/12/18 05:48 03/11/18 14:44 Labs: Abnormal Lab Results - Last 24 Hours (Table) 03/10/18 03/11/18 03/11/18 Range/Units 15:36 14:44 15:19 WBC 12.8 H (3.8-10.6) k/uL RBC 2.16 L (4.30-5.90) m/uL Hgb 7.3 L (13.0-17.5) gm/dL Hct 23.3 L (39.0-53.0) % MCV 107.8 H (80.0-100.0) fL RDW 16.6 H (11.5-15.5) % Plt Count 66 L (150-450) k/uL Neutrophils # 10.2 H (1.3-7.7) k/uL Sodium 136 L (137-145) mmol/L Chloride 115 H (98-107) mmol/L Carbon Dioxide 18 L (22-30) mmol/L BUN 42 H (9-20) mg/dL Glucose 104 H (74-99) mg/dL Calcium 7.4 L (8.4-10.2) mg/dL Crossmatch See Detail 03/11/18 03/12/18 Range/Units 21:16 05:48 WBC 13.1 H (3.8-10.6) k/uL RBC 2.11 L 1.99 L (4.30-5.90) m/uL Hgb 7.3 L 6.7 L* (13.0-17.5) gm/dL Hct 22.5 L 21.1 L (39.0-53.0) % MCV 106.8 H 105.7 H (80.0-100.0) fL RDW 16.5 H 16.0 H (11.5-15.5) % Plt Count 76 L 60 L (150-450) k/uL Neutrophils # 10.4 H (1.3-7.7) k/uL Sodium (137-145) mmol/L Chloride (98-107) mmol/L Carbon Dioxide (22-30) mmol/L BUN (9-20) mg/dL Glucose (74-99) mg/dL Calcium (8.4-10.2) mg/dL Crossmatch Assessment and Plan Assessment: Assessment and Plan 1. Upper GI bleed: Severe erosive esophagitis. Long history of EtOH with remote h/o NSAID use. Continue Protonix 40 mg IV BID. Zofran 4 mg IV TID PRN for N/V. Started Octreotide IV as per GI for possible variceal bleed. EGD performed 03/10 shows severe esophagitis without source of bleed. Trend H&H Q8H. Telemetry monitoring. Continue Clear liquid diet.. FU GI consult 2. Alcohol abuse: CIWA protocol. Ativan IV PRN for CIWA > 8. Continue Thiamine 100 mg PO BID. Fall precautions. Keep Mg > 2 and K > 4. 3. Anemia: Hg 9.1 Hct 27.3 MCV 105.4. Downtrend (as low at 6.6 on 03/11 requiring 1 unit of PRBC and 6.7 on 03/12 requiring 1 PRBC) due to GI bleed + dilution. Macrocytoic likely due to EtOH abuse. B12 and Folate are within normal limits. Transfuse if Hg < 7.0. Trend H&H TID. 4. Lactic acidosis: Lactic acid 4.3 to 3.8, 3.2, 3.0, 3.1 and 1.4. HCO3 20 to 17 , 20, 19 and 18. Likely starvation secondary to EtOH abuse. Continue NS at 150 cc/h. FU UA 5. VITO: BUN 42, Cr within normal limits. Likely secondary to dehydration (GI bleed). Continue NS at 150 cc/h. Daily BMP. 6. Thrombocytopenia: Plt 60. Likely secondary to EtOH abuse. Will continue to monitor. Avoid Heparin products. Hep panel negative. 7. Hypertension: BP 103/50. Continue Losartan 50 mg PO QD and Atenolol 50 mg PO QD. Monitor vitals, adjust medications as necessary. 8. DVT/GO Prophylaxis: SCD boots only. Protonix IV. Resolved: Hyperkalemia, Leukocytosis EGD reveals likely source of bleed to be from severe esophagitis. Continued on octreotide and Protonix IV. Hemoglobin continues to trend down, transfused 1 unit of PRBC today. Will follow GI recommendations.
[2018-03-12 17:32] LABS: INR 1.8 (<1.2); Prothrombin Time 16.6 sec (9.0-12.0)
[2018-03-12 21:04] LABS: Anisocytosis Slight; HCT 24.4 % (39.0-53.0); HGB 7.7 gm/dL (13.0-17.5); MCH 32.9 pg (25.0-35.0); MCHC 31.7 g/dL (31.0-37.0); MCV 103.9 fL (80.0-100.0); Macrocytosis Moderate; Mean Platelet Volume 8.2; RBC 2.35 m/uL (4.30-5.90); RDW 17.3 % (11.5-15.5); WBC 8.8 k/uL (3.8-10.6)
[2018-03-12 21:06] LABS: Platelet Count 59 k/uL (150-450)
--- NOTE | 2018-03-12 21:46 | P.PN ---
Subjective Progress Note Date: 03/19/18 Principal diagnosis: Hematemesis, anemia of acute blood loss Reports to light bowel movements today with no hematochezia noted or dark black bowel movement. He is tolerating his diet. No abdominal pain. Objective - Vital Signs Vital signs: Vital Signs Temp 98.3 F 03/12/18 20:00 Pulse 67 03/12/18 20:00 Resp 20 03/12/18 20:00 BP 107/56 03/12/18 20:00 Pulse Ox 99 03/12/18 20:00 Intake & Output 03/12/18 03/12/18 03/13/18 06:59 18:59 06:59 Intake Total 101 398.631 Output Total 200 300 Balance -99 98.631 Weight 105.1 kg Intake: Intake, IV Titration 101 158.631 Amount Octreotide 200 mcg In 101 158.631 Sodium Chloride 0.9% 100 ml @ 25 MCG/HR 12.62 mls/ hr IV .Q8H1M MARCELA Rx#: [id number] Oral 240 Blood Product 0 Rc As-1 Unit 0 [id number] Output: Urine 200 300 Other: # Voids 1 2 # Bowel Movements 1 0 - Exam On physical examination, patient appears comfortable in no apparent distress. HEAD: Normocephalic, atraumatic. EYES: No scleral icterus. No conjunctival injection. MOUTH: No lesions, tongue midline. NECK: Trachea midline, no gross abnormalities. CHEST: Clear to auscultation with no wheezing or rhonchi appreciated. HEART: Regular rate and rhythm. ABDOMEN: Soft, obese. Bowel sounds are positive. No organomegaly. No guarding or rigidity. EXTREMITIES: No pedal edema. SKIN: No rashes, no jaundice. NEUROLOGIC: Alert and oriented x3. No focal deficits. - Labs CBC & Chem 7: 03/12/18 20:45 03/11/18 14:44 Labs: Abnormal Lab Results - Last 24 Hours (Table) 03/10/18 03/11/18 03/12/18 Range/Units 15:36 21:16 05:48 WBC 13.1 H (3.8-10.6) k/uL RBC 2.11 L 1.99 L (4.30-5.90) m/uL Hgb 7.3 L 6.7 L* (13.0-17.5) gm/dL Hct 22.5 L 21.1 L (39.0-53.0) % MCV 106.8 H 105.7 H (80.0-100.0) fL RDW 16.5 H 16.0 H (11.5-15.5) % Plt Count 76 L 60 L (150-450) k/uL Neutrophils # 10.4 H (1.3-7.7) k/uL PT (9.0-12.0) sec INR (<1.2) Crossmatch See Detail 03/12/18 03/12/18 Range/Units 16:45 20:45 WBC (3.8-10.6) k/uL RBC 2.35 L (4.30-5.90) m/uL Hgb 7.7 L (13.0-17.5) gm/dL Hct 24.4 L (39.0-53.0) % MCV 103.9 H (80.0-100.0) fL RDW 17.3 H (11.5-15.5) % Plt Count 59 L (150-450) k/uL Neutrophils # (1.3-7.7) k/uL PT 16.6 H (9.0-12.0) sec INR 1.8 H (<1.2) Crossmatch Assessment and Plan (1) Upper gastrointestinal hemorrhage Narrative/Plan: Multiple episodes of hematemesis after an initial episode of nonbloody vomitus, suggestive of possible Katherin-Petty tear. Differential also includes peptic ulcer disease, erosive gastritis or esophagitis, bleeding varices or other etiology. Hemoglobin relatively stable, transfuse 1 unit today after hemoglobin fell to 6.7 from 7.3. Reports that bowel movements are now light brown in color. Current Visit: Yes Status: Acute Code(s): K92.2 - GASTROINTESTINAL HEMORRHAGE, UNSPECIFIED SNOMED Code(s): 92243323 (2) Anemia, blood loss Narrative/Plan: Secondary to above. Current Visit: Yes Status: Acute Code(s): D50.0 - IRON DEFICIENCY ANEMIA SECONDARY TO BLOOD LOSS (CHRONIC) SNOMED Code(s): 587831976 (3) Alcohol abuse Current Visit: Yes Status: Acute Code(s): F10.10 - ALCOHOL ABUSE, UNCOMPLICATED SNOMED Code(s): 78914802 (4) Elevated liver enzymes Narrative/Plan: Elevation in total bilirubin, and AST to ALT ratio consistent with alcohol abuse. Elevated INR and low platelets are concerning for underlying cirrhosis. Current Visit: Yes Status: Acute Code(s): R74.8 - ABNORMAL LEVELS OF OTHER SERUM ENZYMES SNOMED Code(s): 223582753 Plan: Supportive care Tolerated full liquid diet today, if hemoglobin remains stable and patient has no further symptoms of GI bleeding would advance to a 2 g sodium diet tomorrow Have switched Protonix to 40 mg by mouth twice a day Octreotide started given significant history of alcohol abuse and serologic evidence of liver compromise, can DC octreotide tomorrow Monitor for alcohol withdrawal Monitor hemoglobin and transfuse as needed If the patient's hemoglobin remains stable and he has no further symptoms he can be discharged for follow-up with gastroenterology and plans for a repeat upper endoscopy and possible colonoscopy in the outpatient setting Extensive conversation with the patient and his about the need for continued alcohol abstinence and the likelihood that he is already suffered a significant degree of fibrosis and/or cirrhosis Thank you for allowing us to participate in the care of this patient
[2018-03-13] MEDS ORDERED: PANTOPRAZOLE 40 MG TABLET PO SCH (07:30)
[2018-03-13 08:34] LABS: Anisocytosis Slight; HCT 26.9 % (39.0-53.0); HGB 8.6 gm/dL (13.0-17.5); MCH 33.8 pg (25.0-35.0); MCHC 32.2 g/dL (31.0-37.0); MCV 105.1 fL (80.0-100.0); Macrocytosis Marked; Mean Platelet Volume 7.9; RBC 2.56 m/uL (4.30-5.90); RDW 17.4 % (11.5-15.5); WBC 7.2 k/uL (3.8-10.6)
[2018-03-13 08:36] LABS: Platelet Count 73 k/uL (150-450)
[2018-03-13] MEDS: SODIUM CHLORIDE 0.9% 1,000 ML IV SCH ×2 (08:48→09:01)
[2018-03-13] MEDS: ATENOLOL 50 MG TAB PO SCH (09:01)
[2018-03-13] MEDS: LOSARTAN 50 MG TAB PO SCH (09:01)
[2018-03-13] MEDS: OCTREOTIDE 200 MCG in SODIUM CHLORIDE 0.9% 100 ML IV SCH (09:08)
[2018-03-13 09:15] LABS: Anion Gap 5 mmol/L; Blood Urea Nitrogen 21 mg/dL (9-20); Calcium 7.5 mg/dL (8.4-10.2); Carbon Dioxide 18 mmol/L (22-30); Chloride 114 mmol/L (98-107); Glucose 95 mg/dL (74-99); Potassium 4.2 mmol/L (3.5-5.1); Sodium 137 mmol/L (137-145)
[2018-03-13 10:40] VITALS: RESP 20; TEMP 98.6
[2018-03-13] MEDS: THIAMINE 100 MG TAB PO SCH (11:08)
[2018-03-13 12:22] VITALS: BP 111/54; PULSE 57
--- NOTE | 2018-03-13 13:27 | P.DS ---
Providers Date of admission: 03/10/18 03:08 Expected date of discharge: 03/13/18 Attending physician: Rose Jimenez MD Consults: 03/10/18 03:09 Consult Physician Routine Consulting Provider: Lizandro Peralta Consult Reason/Comments: Hematemesis Do you want consulting provider notified?: Yes Primary care physician: Arash Berger - Discharge Diagnosis(es) (1) Lactic acidosis Current Visit: Yes Status: Acute (2) VITO (acute kidney injury) Current Visit: Yes Status: Acute (3) Thrombocytopenia Current Visit: Yes Status: Acute (4) Supratherapeutic INR Current Visit: Yes Status: Acute (5) Alcohol abuse Current Visit: Yes Status: Acute (6) Anemia, blood loss Current Visit: Yes Status: Acute (7) Hypertension Current Visit: Yes Status: Acute (8) Upper gastrointestinal hemorrhage Current Visit: Yes Status: Acute Hospital Course: 43 year old M with PMH of EtOH abuse presents to the ED for hematemesis and melena. Patient reports multiple bloody episodes of vomiting prior to admission. Since last night, he has vomited once, with gross blood. He denies any abdominal pain. No changes in bowel habits. States he took 2 Ibuprofens over the past 2 days. He does drink 1-2 shots daily with 5-6 beers. With regard to his upper GI bleed, this is thought to be secondary to his alcohol abuse and remote history of NSAID use. He was started on Protonix IV. Gastroenterology was consulted and recommended EGD and octreotide. EGD was performed on 03/10/2018 which showed severe esophagitis without any active bleed. He was started on clear liquid diet after his EGD and transition to a low-salt diet on discharge. Patient's hemoglobin was trended as well. His hemoglobin on admission was 11.2, which trended down to 6.6 on March 11. He was transfused 1 unit of PRBC at that time. He was hemoglobin trended again down to 6.7 on 03/12/2018 and he was transfused 1 unit of PRBC. His hemoglobin post transfusion was 7.7 (03/12/2018), and 8.6 on repeat (03/13/2018). Patient was placed on C1 protocol for his alcohol abuse. Patient was also noted to have lactic acidosis during his admission. His lactic acid was 4.3 on admission. This trended down to 3.8, 3.2, 3.0, 3.1 and 1.4 at the time of discharge. Patient was noted to have an VITO with a BUN of 42 on discharge. This was thought to be secondary to dehydration from his GI bleed. Patient was noted to have thrombocytopenia with a platelet count of 60 on discharge. This is thought to be secondary to alcohol abuse. Q tip test pills negative. Patient was noted to have a supratherapeutic INR at 1.8. This is thought to be secondary to alcohol abuse. Otherwise his home medications were resumed for his hypertension. Patient was seen and examined prior to discharge. He denies any further episodes of vomiting. He had a bowel movement this morning, normal. No melena or bright red blood per rectum. Patient denies any chest pain, shortness of breath or palpitations. Looking for to going home. General: [non toxic], [no distress], [appears at stated age] Derm: [warm], [dry] Head: [atraumatic], [normocephalic], [symmetric] Eyes: [EOMI], [no lid lag], [anicteric sclera] Mouth: [no lip lesion], [mucus membranes moist] Cardiovascular: [S1S2 reg], [no murmur], [positive DP pulse bilateral] Lungs: [CTA bilateral], [no rhonchi, no rales] , [no accessory muscle use] Abdominal: [soft], [ nontender to palpation], [no guarding], [no appreciable organomegaly] Ext: [no gross muscle atrophy], [no edema], [no contractures] Neuro: [no focal neuro deficits] Psych: [Alert], [oriented], [appropriate affect] Assessment and Plan 1. Upper GI bleed: Severe erosive esophagitis. Long history of EtOH with remote h/o NSAID use. Continue Protonix 40 mg IV BID transitioned to PO. Zofran 4 mg IV TID PRN for N/V. DC Octreotide IV as per GI. EGD performed 03/10 shows severe esophagitis without source of bleed. Telemetry monitoring. Low salt diet and advance. Discussed with Dr. Peralta, cleared for DC. 2. Alcohol abuse: CIWA protocol. Ativan IV PRN for CIWA > 8. Continue Thiamine 100 mg PO BID. Fall precautions. Keep Mg > 2 and K > 4. 3. Anemia: Hg 9.1 Hct 27.3 MCV 105.4. Downtrend (as low at 6.6 on 03/11 requiring 1 unit of PRBC and 6.7 on 03/12 requiring 1 PRBC) due to GI bleed + dilution. Hg trending up from 7.7 (post transfusion) to 8.6 on discharge. Macrocytoic likely due to EtOH abuse. B12 and Folate are within normal limits. 4. Supratherapeutic INR: INR 1.8. Likely secondary to EtOH abuse. GI bleed resolved. 5. HyperCl Metabolic acidosis: HCO3 18 and Cl 114. Likely secondary to IVF given through hospital stay. 6. VITO: BUN 42 to 21, Cr within normal limits. Likely secondary to dehydration ( GI bleed). Continue NS at 150 cc/h. Daily BMP. 7. Thrombocytopenia: Plt 73. Likely secondary to EtOH abuse. Will continue to monitor. Avoid Heparin products. Hep panel negative. 8. Hypertension: BP 111/54. Continue Losartan 50 mg PO QD and Atenolol 50 mg PO QD. Monitor vitals, adjust medications as necessary. 9. DVT/GO Prophylaxis: SCD boots only. Protonix. Resolved: Hyperkalemia, Leukocytosis, Lactic acidosis EGD reveals likely source of bleed to be from severe esophagitis. Hg trending up. Cleared by GI. DC home today if tolerating diet this PM. This complex discharge took greater than 30 minutes. I incorrectly sent Xaaveryto yesterday to [facility] that has since been cancelled. Procedures: EGD Patient Condition at Discharge: Stable Plan - Discharge Summary Discharge Rx Participant: No New Discharge Prescriptions: New Pantoprazole [Protonix] 40 mg PO AC-BID #60 tablet. Thiamine [Vitamin B-1] 100 mg PO BID@1200,1700 #60 tab Continue Losartan [Cozaar] 50 mg PO DAILY Atenolol [Tenormin] 50 mg PO DAILY Discharge Medication List Atenolol [Tenormin] 50 mg PO DAILY 03/09/18 [History] Losartan [Cozaar] 50 mg PO DAILY 03/09/18 [History] Pantoprazole [Protonix] 40 mg PO AC-BID #60 tablet. 03/13/18 [Rx] Thiamine [Vitamin B-1] 100 mg PO BID@1200,1700 #60 tab 03/13/18 [Rx] Follow up Appointment(s)/Referral(s): Florencia Mancia PAC [REFERRING] - 1-2 days Lizandro Peralta MD [STAFF PHYSICIAN] - 1 Week Patient Instructions/Handouts: Gastrointestinal Bleeding (ED) Activity/Diet/Wound Care/Special Instructions: Diet: Low salt Please follow-up the primary care provider within 1-2 days of discharge. Please follow-up with gastroenterology Dr. Blackwood within 1 week of discharge. Please come to the ED or call 911 for worsening chest pain, dizziness, shortness of breath or palpitations. Please come to the ED or call 911 if you start vomiting blood, or have bowel movements with blood or if you have black stools. Please take all medications as advised. Discharge Disposition: HOME SELF-CARE
== END 2018-03-13 13:17 | disposition home or self-care (01) | DRG 381 ==
LOC: EC 23:03 → 3SCARD 03-10 03:08
PROVIDERS: ADMIT Internal Medicine; ATTEND Internal Medicine
PROC: 0DJ08ZZ Inspection of Upper Intestinal Tract, Via Natural or Artificial Opening Endoscopic (ICD-10-PCS; principal; 2018-03-10 07:30)
DX: K22.11 Ulcer of esophagus with bleeding (principal); D62 Acute posthemorrhagic anemia; E87.2 Acidosis; N17.9 Acute kidney failure, unspecified; D69.6 Thrombocytopenia, unspecified; D72.829 Elevated white blood cell count, unspecified; E86.0 Dehydration; E87.5 Hyperkalemia; F10.10 Alcohol abuse, uncomplicated; F17.200 Nicotine dependence, unspecified, uncomplicated; I10 Essential (primary) hypertension; R79.1 Abnormal coagulation profile; T73.0XXA Starvation, initial encounter; G89.29 Other chronic pain; M54.5 Low back pain; R74.8 Abnormal levels of other serum enzymes; R73.9 Hyperglycemia, unspecified; D53.9 Nutritional anemia, unspecified; Z79.899 Other long term (current) drug therapy; Z91.09 Other allergy status, other than to drugs and biological substances
CPT/HCPCS: 36415; 43235; 80048; 80053; 80074; 80320; 82550; 82553; 82607; 82746; 83605; 84484; 85025; 85027; 85610; 85730; 86850; 86900; 86901; 86920; 96361; 96374; 96375; 99285

== ENCOUNTER → 2022-10-22 | Outpatient (CLI) | payer OTHER | END | disposition home or self-care (01) | LOC: LABWHC1 16:12 | PROVIDERS: ATTEND Internal Medicine Transplant Hepatology | DX: Z53.9 Procedure and treatment not carried out, unspecified reason (principal) ==